=== PATIENT | female | born 1980 | race Caucasian/White ===

== ENCOUNTER 2025-05-17 02:17 | Emergency (ER) | payer MEDICAID, SELFPAY ==
[2025-05-17 02:22] VITALS: BMI 20.3
[2025-05-17 02:36] VITALS: BP 138/88
--- NOTE | 2025-05-17 03:11 | ED.GENMED ---
History of Present Illness
General
Chief Complaint: Skin Problem
Source: patient
Exam Limitations: none
Time Seen by Provider: 05/17/25 03:04
Nursing documentation reviewed up to this point in time: agreed with
History of Present Illness
History of Present Illness:
The patient is a 44-year-old female presenting in police custody. She c/o left leg redness x few days. She has long standing history of IVDA, prior history of cellulitis LLE with prior open wounds of left lower leg. recently incarcerated and
maintained on suboxone while incarcerated. Released 2 weeks ago and unfortunately Suboxone was not continued. Patient has resumed IV drug use but denies injecting in her legs over the past 2 weeks. She has not had a fever.
Currently takes no medications.
She presents in police custody, requesting medical clearance for incarceration.
Past History
Past History
ED Past Medical History: Psychiatric and Other (IV drug abuse, hepatitis C, cellulitis)
ED Past Surgical History: Other (Breast augmentation)
Social History
Tobacco: Non-smoker
Alcohol: None
Drug: Narcotics
Personal: Single
Living: with family
Employment: Not employed
Family History
Family History: Other (Noncontributory)
Phy Exam
Physical Exam
Physical Exam:
GENERAL: 44-year-old woman appears her stated age. Moderately drowsy, awakens easily. Oriented x 3. Appears in no acute distress. Afebrile.
EYE: Pupils are pinpoint, reactive. Anicteric
NECK: Supple, nontender, no meningismus, no significant adenopathy.
ENT: posterior pharynx is clear, oral mucosa is moist. No rhinorrhea.
CARDIAC: Regular rate and rhythm. no murmur.
LUNGS: Clear breath sounds bilaterally, no acute respiratory distress, no wheezes/rales/rhonchi
ABDOMEN: Soft, nondistended, without focal tenderness, no r/g, no cvat. normoactive BS.
NEUROLOGICAL: Drowsy, easily arousable, no focal neurodeficits. Gait is steady.
SKIN: Warm and dry, normal color, few scattered pinpoint excoriations. The left lower extremity has several large old healed/contracted scars. There is very minimal pinkish discoloration of bilateral lower extremities. There is no erythema, no
palpable heat, no soft tissue swelling no appreciable tenderness to palpation. No track [place] noted to the lower extremities.
MUSCULOSKELETAL: No C/C/E. peripheral pulses are full and equal b/l. No palpable tenderness.
PSYCH: Moderately blunted affect. Cooperative.
Course
Orders/Labs/Results
Orders:
Orders
05/17/25 03:10
Doxycycline [Vibramycin] 100 mg PO NOW STA
Vital Signs
Initial and Last Documented VS:
Initial Vital Signs
Temp Resp Pulse Ox
98.6 F 18 99
05/17/25 02:23 05/17/25 02:23 05/17/25 02:23
Last Documented Vital Signs
Temp Pulse Resp BP Pulse Ox
98.6 F 84 18 138/88 98
05/17/25 02:23 05/17/25 03:24 05/17/25 03:24 05/17/25 02:36 05/17/25 03:24
MDM/Problems Addressed
Differential Diagnosis Includes:
Patient presents for medical clearance for incarceration.
History of substance abuse, IV drug abuse, complains of redness and swelling left lower extremity. Denies recent injection to her legs.
Left lower extremity has chronic scarring, well-healed wounds and there is very minimal somewhat chronic appearing pinkness to her skin but there is no definitive erythema, no abscess formation, no lymphangitis, no palpable heat nor significant
tenderness to palpation.
She is afebrile and no reported recent fever.
No definitive evidence of cellulitis but due to prior history of cellulitis, prior wounds will place on a 1 week course of doxycycline for potential early cellulitis.
Patient admits to IV fentanyl use over the past 2 weeks since released from custodial. She is moderately drowsy but easily arousable. No respiratory compromise.
At this point no evidence of withdrawal but will require ongoing observation for opioid withdrawal symptoms and initiation of Suboxone at that time.
No indication for laboratory studies nor imaging.
Will give a dose of doxycycline now and a prescription for 1 week course of doxycycline has been provided.
Patient medically stable and cleared for incarceration.
Chronic conditions affecting care: Other (IV drug abuse)
*Pulse Oximetry
SaO2: 97
Oxygen Mode of Delivery: Room air
Patient hypoxic: no
*Critical Care Note
Total Time (30-74mins, 75-104mins- exclusive of procedures): Not Applicable
ED Attending Note
-
Portions of this chart may have been created with voice recognition software.� Occasional wrong word or��sound alike� substitutions may have occurred due to the inherent limitations of voice recognition software.
Discharge Plan
Departure
Patient Disposition: [facility]
Date of Disposition: 05/17/25
Time of Disposition: 03:16
Patient with high blood pressure during this ER visit?: No
Condition: Good
Discharge Problem:
chronic scarring left lower extremity, Intravenous drug abuse
Prescriptions:
New
doxycycline hyclate 100 mg capsule
100 mg PO BID Qty: 14 0RF
Interventions
Interventions:
*Risk Screen - Suicide Last Done: 05/17/25 02:23
*General Assessment Last Done: 05/17/25 02:23
*Neglect/Abuse Screening Last Done: 05/17/25 02:23
*ED- Fall Risk Assessment Last Done: 05/17/25 02:23
*ED COVID-19 Vaccine History Last Done: 05/17/25 02:23
*Nursing Disposition Last Done: 05/17/25 03:24
ED-Skin Assessment Last Done: 05/17/25 02:38
Discharge Date and Time
Discharge Date/Time: 05/17/25 03:30
Print Language: [email or web address]
[2025-05-17] MEDS: VIBRAMYCIN 100 MG PO (03:17)
== END 2025-05-17 03:30 ==
LOC: EMR 02:17
PROVIDERS: EMERGENCY PHYSICIAN Emergency Medicine
DX: L98.8 Other specified disorders of the skin and subcutaneous tissue (principal); F19.10 Other psychoactive substance abuse, uncomplicated; Z86.19 Personal history of other infectious and parasitic diseases; Z65.3 Problems related to other legal circumstances
CPT/HCPCS: 99283